=== PATIENT | male | born 1970 | race African-American/Black ===

== ENCOUNTER 2019-07-28 13:09 | Day surgery (SDC) | payer BC ==
[2019-07-28 13:56] VITALS: BMI 25.0
[2019-07-28] MEDS ORDERED: SUCCINYLCHOLINE CHLORIDE 200 MG/10 ML SYRINGE ONE (14:26)
[2019-07-28] MEDS ORDERED: PROPOFOL 20 ML ONE ×2 (14:26)
[2019-07-28] MEDS ORDERED: LIDOCAINE HCL 2% JELLY (5 ML/TUBE) ONE (14:26)
[2019-07-28] MEDS ORDERED: LIDOCAINE HCL/PF 2% SDV 5ML VIAL ONE (14:26)
[2019-07-28] MEDS ORDERED: MIDAZOLAM HCL 2 MG/2 ML SINGLE DOSE VIAL ONE (14:26)
[2019-07-28] MEDS ORDERED: ceFAZolin SODIUM 1 GM VIAL ONE (14:47)
[2019-07-28] MEDS ORDERED: KETOROLAC TROMETHAMINE 30 MG/1 ML VIAL ONE (15:15)
[2019-07-28] MEDS ORDERED: DEXAMETHASONE SOD PHOSPHATE 4 MG/1 ML VIAL ONE (15:15)
[2019-07-28] MEDS ORDERED: ONDANSETRON 4 MG/2 ML VIAL ONE (15:15)
[2019-07-28] MEDS ORDERED: BUPIVACAINE HCL/PF 0.5% (5MG/ML) 10 ML VIAL ONE (15:17)
[2019-07-28] MEDS ORDERED: ONDANSETRON 4 MG/2 ML VIAL IVPUSH PRN (16:11)
[2019-07-28] MEDS ORDERED: oxyCODONE HCL 5 MG TABLET PO PRN (16:11)
[2019-07-28] MEDS ORDERED: LACTATED RINGERS SOLUTION 1,000 ML IV SCH (16:15)
[2019-07-28] MEDS ORDERED: ACETAMINOPHEN 1000 MG/100 ML VIAL (NON FORMULARY) IVPB ONE (17:04)
[2019-07-28] MEDS ORDERED: LABETALOL HCL 5 MG/1 ML (100MG/20 ML VIAL) ONE (17:16)
[2019-07-28] MEDS ORDERED: LABETALOL HCL 5 MG/1 ML (100MG/20 ML VIAL) IVPUSH ONE (17:25)
[2019-07-28 18:06] VITALS: TEMP 97.7
[2019-07-28 18:38] VITALS: BP 149/91; PULSE 62
--- NOTE | 2019-08-02 15:55 | OP ---
DATE OF OPERATION: 07/28/2019 PREOPERATIVE DIAGNOSIS: Left index finger proximal phalanx displaced fracture. POSTOPERATIVE DIAGNOSIS: Left index finger proximal phalanx displaced fracture. OPERATIVE PROCEDURE: Left index finger proximal phalanx open reduction, internal fixation. SURGEON: Chirag Walter M.D. LINK TRAINER MECHANIC: Diane Yu ANESTHESIA: General anesthesia. COMPLICATIONS: None. ESTIMATED BLOOD LOSS: Minimal. INDICATION FOR PROCEDURE: The patient is a 49-year-old male with the above findings, indicated for operative treatment. Risks, benefits, and alternatives were discussed with the patient at length. Proper informed consent was obtained. DESCRIPTION OF PROCEDURE: After proper identification of the patient and correct operative site, patient was brought to the operating room and placed supine on the operating room table, all bony prominences well padded. General anesthesia was provided by the anesthesiologist adequate for procedure. Left upper extremity was prepped and draped in the usual sterile fashion. Well padded tourniquet was placed with a sterile prep. Esmarch bandage to exsanguinate the left upper extremity. Tourniquet inflated to 250 mmHg. Curvilinear incision made over the dorsal aspect of the proximal phalanx to the index finger. Incision was taken sharply through skin with sharp and blunt dissection down to the extensor mechanism. Extensor tendon was divided longitudinally proximal to the PIP joint and distal to the MP joint. Full thickness flaps were elevated. Early callous formation was removed, and the phalanx was identified. It was an oblique comminuted fracture. The fracture was cleaned of any soft tissue and early callus, and was reduced using a bone clamp. was found to be satisfactory in alignment. Two screws were placed in a bicortical fashion, interfragmentary. Both screws were 1.3-mm Synthes modular hand screws. X-rays were taken to confirm proper placement and size of all hardware as well as anatomic reduction of the fracture. Finger was taken through range of motion, and there was no stress on the implant or of the fracture, and full range of motion was achieved. The extensor mechanism was repaired in a side to side fashion with 6-0 nylon suture. The finger was again taken through range of motion, and there was no tension on the repair. Skin was repaired with 5-0 suture and Dermabond. Sterile dressings and a splint were placed. Patient reversed from anesthesia, brought to the recovery room in stable condition. He tolerated the procedure well. Marco A Mckay, the orthopaedic physician assistant, was integral throughout the procedure. Procedure could not have been performed without a skilled operative orthopaedic physician assistant. CHIRAG WALTER M.D. [id number]
== END 2019-07-28 18:45 | disposition home or self-care (01) ==
LOC: FASU 13:09
PROVIDERS: ATTEND Orthopaedic Surgery Hand Surgery
PROC: 0PSV04Z Reposition Left Finger Phalanx with Internal Fixation Device, Open Approach (ICD-10-PCS; principal; 2019-07-28 15:02)
DX: S62.611A Displaced fracture of proximal phalanx of left index finger, initial encounter for closed fracture (principal); X58.XXXA Exposure to other specified factors, initial encounter; Y93.9 Activity, unspecified; Y92.9 Unspecified place or not applicable
CPT/HCPCS: 73130-TC-LT-FY; 94760; J0131

== ENCOUNTER 2022-06-19 10:59 | Day surgery (SDC) | payer BC ==
[2022-06-18 13:13] VITALS: BMI 25.0
[2022-06-19] MEDS ORDERED: BUPIVACAINE HCL/PF 0.25% (2.5MG/ML) 10 ML VIAL ONE (12:39)
[2022-06-19] MEDS ORDERED: PROPOFOL 40 ML ONE (12:49)
[2022-06-19] MEDS ORDERED: MIDAZOLAM HCL 2 MG/2 ML SINGLE DOSE VIAL ONE (12:49)
[2022-06-19] MEDS ORDERED: LIDOCAINE HCL/PF 2% SDV 5ML VIAL ONE (12:50)
[2022-06-19] MEDS ORDERED: ONDANSETRON 4 MG/2 ML VIAL IVPUSH PRN (13:51)
[2022-06-19] MEDS ORDERED: ACETAMINOPHEN 325 MG TABLET (FP) PO PRN (13:51)
[2022-06-19] MEDS ORDERED: oxyCODONE HCL 5 MG TABLET PO PRN (13:51)
[2022-06-19] MEDS ORDERED: LACTATED RINGERS SOLUTION 1,000 ML IV SCH (14:00)
[2022-06-19] MEDS ORDERED: DEXAMETHASONE SOD PHOSPHATE 4 MG/1 ML VIAL ONE (14:11)
[2022-06-19] MEDS ORDERED: KETOROLAC TROMETHAMINE 30 MG/1 ML VIAL ONE (14:11)
[2022-06-19] MEDS ORDERED: GLYCOPYRROLATE 0.2 MG/1 ML VIAL ONE (14:11)
[2022-06-19 17:03] VITALS: TEMP 97.7
[2022-06-19 17:41] VITALS: BP 136/88; PULSE 73; RESP 14
== END 2022-06-19 17:55 | disposition home or self-care (01) ==
LOC: FASU 10:59
PROVIDERS: ATTEND Orthopaedic Surgery Hand Surgery
PROC: 0LQ70ZZ Repair Right Hand Tendon, Open Approach (ICD-10-PCS; principal; 2022-06-19 14:32)
DX: S66.196A Other injury of flexor muscle, fascia and tendon of right little finger at wrist and hand level, initial encounter (principal); X58.XXXA Exposure to other specified factors, initial encounter; Y93.9 Activity, unspecified; Y92.9 Unspecified place or not applicable
CPT/HCPCS: 94760